=== PATIENT | male | born 1990 | race Two or more races ===

== ENCOUNTER 2025-07-21 00:22 | Emergency (ER) | payer OTHER ==
[~2025-07-21] VITALS: Ht 172.7 cm; Wt 110.2 kg
--- NOTE | 2025-07-21 00:52 | ED.PDOC ---
GI ASSESSMENT HPI Comments 35-year-old male who came to ER for abdominal pain/chest pain. Patient states it has been 5 days since his last bowel movement. He has been having left lower abdominal pain, but denies any nausea or vomiting. Denies any history of abdominal surgeries. Increase water intake, drinking prune juice as offered no relief for his constipation. Persistence of symptoms, now associated with chest pain, headaches, and tingling of upper extremities prompted patient to come to the ER Chief Complaint: Abdominal pain Time Seen by MD: 00:51 Reviewed Notes: Nurses Notes Allergies: Coded Allergies: NO KNOWN ALLERGIES (Unverified , 07/21/25) Home Meds Active Scripts Inulin (Fiber Choice Fruity Bites) 1.5 Gm Chw, 1.5 GM PO BID for 90 Days, #180 TAB.CHEW Prov:BENNY PERALTA MD 07/21/25 Bisacodyl (Dulcolax) 10 Mg Sup, 10 MG RE Q6HP PRN, #20 SUPP Prov:BENNY PERALTA MD 07/21/25 Information Source: Patient Mode of Arrival: Ambulatory Timing: Days Duration: Since onset Quality: Aching Vomitus: None Stool: Impaction Severity: Moderate Pain Location: LLQ Associated sign and symptoms: Constipation, Abdominal Pain Past Medical History PAST MEDICAL HISTORY: Denies Surgical History: Denies all surgeries Family History Family History: Reviewed,noncontributory to illness Social History Smoker: Non-Smoker Alcohol: Denies ETOH Use Drugs: Denies Drug Use Lives In: Home Constitutional: denies: chills, diaphoresis, fatigue, fever, malaise, sweats, weakness, others EENTM: denies: blurred vision, double vision, ear bleeding, ear discharge, ear drainage, ear pain, ear ringing, eye pain, eye redness, hearing loss, mouth pain, mouth swelling, nasal discharge, nose bleeding, nose congestion, nose pain, photophobia, tearing, throat pain, throat swelling, voice changes, others Respiratory: denies: cough, hemoptysis, orthopnea, SOB at rest, shortness of breath, SOB with excertion, stridor, wheezing, others Cardiovascular: denies: chest pain, dizzy spells, diaphoresis, Dyspnea on exertion, edema, irregular heart beat, left arm pain, lightheadedness, palpitations, PND, syncope, others Gastrointestinal: reports: abdominal pain, constipated; denies: abdomen distended, blood streaked bowels, diarrhea, dysphagia, difficulty swallowing, hematemesis, melena, nausea, poor appetite, poor fluid intake, rectal bleeding, rectal pain, vomiting, others Genitourinary: denies: burning, dysuria, flank pain, frequency, hematuria, incontinence, penile discharge, penile sore, pain, testicle pain, testicle swelling, urgency, others Neurological: denies: dizziness, fainting, headache, left sided numbness, left sided weakness, numbness, paresthesia, pre-existing deficit, right sided numbness, right sided weakness, seizure, speech problems, tingling, tremors, weakness, others Musculoskeletal: denies: back pain, gout, joint pain, joint swelling, muscle pain, muscle stiffness, neck pain, others Integumetry: denies: bruises, change in color, change in hair/nails, dryness, laceration, lesions, lumps, rash, wounds, others Allergic/Immunocompromised: denies: Difficulty Healing, Frequent Infections, Hives, Itching, others Hematologic/Lymphatic: denies: anemia, blood clots, easy bleeding, easy bruising, swollen glands, others Endocrine: denies: excessive hunger, excessive sweating, excessive thirst, excessive urination, flushing, intolerance to cold, intolerance to heat, unexplained weight gain, unexplained weight loss, others Psychiatric: denies: anxiety, bipolar disorder, depression, hopeless, panic disorder, schizophrenia, sleepless, suicidal, others Physical Exam General Appearance: No Apparent Distress, Normal HEENT: Normal ENT Inspection, Pharynx Normal, TMs Normal Neck: Full Range of Motion, Non-Tender, Normal, Normal Inspection Respiratory: Chest Non-Tender, Lungs Clear, No Accessory Muscle Use, No Respiratory Distress, Normal Breath Sounds Cardiovascular: No Edema, No JVD, No Murmur, No Gallop, Normal Peripheral Pulses, Regular Rate/Rhythm Breast Exam: Deferred Gastrointestinal: No Organomegaly, Non Tender, No Pulsatile Mass, Normal Bowel Sounds, Soft Genitalia: Deferred Pelvic: Deferred Rectal: Deferred Extremities: No calf tenderness, Normal capillary refill, Normal inspection, Normal range of motion, Non-tender, No pedal edema Musculoskeletal : Apperance: Normal Neurologic: Alert, laboratory geneticist II-XII nml as Tested, No Motor Deficits, Normal Affect, Normal Mood, No Sensory Deficits Cerebellar Function: Normal Reflexes: Normal Skin: Dry, Normal Color, Warm Lymphatic: No Adenopathy Was a procedure done? Was a procedure done?: No GI differential Dx Differential Diagnosis: Constipation, Diverticular disease, Gastritis/PUD, Gastroenteritis, Pancreatitis, UTI X-Ray, Labs, Meds, VS Vital Signs Date Time Temp Pulse Resp B/P (MAP) Pulse Ox O2 Delivery O2 Flow Rate FiO2 07/21/25 03:44 97.7 65 17 120/85 (97) 98 97.7 07/21/25 01:59 97.9 67 17 120/81 (94) 95 97.9 07/21/25 00:25 57 07/21/25 00:24 98.1 62 16 144/88 98 98.1 Lab Test 07/21/25 01:53 07/21/25 00:37 Range/Units Urine Color Light-yellow Yellow Urine Clarity Clear Clear Urine pH 6.0 5.0-9.0 Urine Specific Allen 1.026 1.001-1.035 Urine Protein Negative Negative Urine Ketones Negative Negative Urine Blood Negative Negative /uL Urine Nitrite Negative Negative Urine Bilirubin Negative Negative Urine Urobilinogen Normal Negative mg/dL Urine Leukocyte Esterase Negative Negative /uL Urine RBC <1 0 - 3 /hpf Urine Microscopic WBC < 1 0-3 /HPF Urine Squamous Epithelial Cells Few <5 /hpf Urine Bacteria None seen None Seen /hpf Urine Mucus Few None Seen Urine Glucose Normal Normal mg/dL White Blood Count 10.6 4.4-10.8 10^3/uL Red Blood Count 5.23 4.5-5.90 10^6/uL Hemoglobin 15.3 13.5-17.5 g/dL Hematocrit 44.1 41.0-53.0 % Mean Corpuscular Volume 84.4 80.0-100.0 fL Mean Corpuscular Hemoglobin 29.2 28.0-32.0 pg Mean Corpuscular Hemoglobin Concent 34.7 32.0-36.0 g/dL Red Cell Distribution Width 14.1 11.8-14.3 % Platelet Count 195 140-450 10^3/uL Mean Platelet Volume 7.5 6.9-10.8 fL Neutrophils (%) (Auto) 56.3 37.0-80.0 % Lymphocytes (%) (Auto) 34.0 10.0-50.0 % Monocytes (%) (Auto) 6.8 0.0-12.0 % Eosinophils (%) (Auto) 2.3 0.0-7.0 % Basophils (%) (Auto) 0.6 0.0-2.0 % Neutrophils # (Auto) 6.0 1.6-8.6 10 ^3/uL Lymphocytes # (Auto) 3.6 0.4-5.4 10 ^3/uL Monocytes # (Auto) 0.7 0-1.3 10 ^3/uL Eosinophils # (Auto) 0.2 0-0.8 10 ^3/uL Basophils # (Auto) 0.1 0-0.2 10 ^3/uL Nucleated Red Blood Cells 0.1 % Sodium Level 141 136-145 mmol/L Potassium Level 4.1 3.5-5.1 mmol/L Chloride Level 105 98-107 mmol/L Carbon Dioxide Level 28 20-31 mmol/L Anion Gap 8 5-15 Blood Urea Nitrogen 16 9-23 mg/dL Creatinine 0.99 0.700-1.30 mg/dL Glomerular Filtration Rate Calc 103 >90 mL/min BUN/Creatinine Ratio 16.2 10.0-20.0 Serum Glucose 90 74-106 mg/dL Calcium Level 9.4 8.7-10.4 mg/dL Total Bilirubin 0.3 0.2-1.0 mg/dL Aspartate Amino Transferase (AST) 23 13-40 U/L Alanine Aminotransferase (ALT) 40 7-40 U/L Alkaline Phosphatase 95 46-116 U/L Total Protein 7.9 5.7-8.2 g/dL Albumin 4.8 3.2-4.8 g/dL Lipase 52 12-53 U/L Current Medications Medications (Trade) Dose Ordered Sig/Alanna Route Start Time Stop Time Status Last Admin Sodium Chloride 1,000 ml @ 1,000 mls/hr Q1H ONCE IVB 07/21/25 00:45 07/21/25 01:44 DC 07/21/25 02:32 Polyethylene Glycol/ Electrolytes (Golytely) 1 kit ONCE ONCE PO 07/21/25 05:00 07/21/25 05:01 DC 07/21/25 05:30 Time of 1ST Reevaluation: 00:48 Reevaluation 1ST: Unchanged Patient Education/Counseling: Diagnosis, Treatment Family Education/Counseling: No Family Present SEPSIS Sepsis Screen Date sepsis recognized/suspect: Jul 21, 2025 Time Sepsis recognized/suspect: 0031 Recent Procedure: No On Antibiotic Therapy: No Respiratory Rate >20: No Heart Rate >90: No Temp<36 C (96.8 F) or >38.3 C: No SBP <90 or MAP <65 mmHG: No New Acute Mental Status Change: No Is the patient on CPAP, BIPAP,: No Physician Orders Ct Ab Pel With Iv Con Only (07/21/25 00:40) Electrocardigram (07/21/25 02:56) Vital Signs Date Time Temp Pulse Resp B/P (MAP) Pulse Ox O2 Delivery O2 Flow Rate FiO2 07/21/25 03:44 97.7 65 17 120/85 (97) 98 97.7 07/21/25 01:59 97.9 67 17 120/81 (94) 95 97.9 07/21/25 00:25 57 07/21/25 00:24 98.1 62 16 144/88 98 98.1 Laboratory Tests Test 07/21/25 00:37 White Blood Count 10.6 10^3/uL (4.4-10.8) Departure 1 Departure Time of Disposition: 05:00 Impression: Primary Impression: Pulmonary nodule Additional Impression: Constipation Disposition: 01 HOME / SELF CARE / HOMELESS Condition: Stable e-Prescriptions Inulin (Fiber Choice Fruity Bites) 1.5 Gm Chw 1.5 GM PO BID for 90 Days, #180 TAB.CHEW Prov: BENNY PERALTA MD 07/21/25 Bisacodyl (Dulcolax) 10 Mg Sup 10 MG RE Q6HP PRN, #20 SUPP Prov: BENNY PERALTA MD 07/21/25 Discharged With: Self Critical Care Note Critical Care Time?: No Stability Stability form required: No Heart Score Heart Score: Heart Score Response (Comments) Value History N/A 0 EKG N/A 0 Age N/A 0 Risk Factors N/A 0 Troponin N/A 0 Total 0 I personally scribed for BENNY PERALTA MD ([email or web address]) on 07/21/25 at 00:51. Electronically submitted by Ramon Carr ([email or web address]). BENNY PERALTA MD Jul 21, 2025 00:51
[2025-07-21 00:54] LABS: Hematocrit 44.1 % (41.0-53.0); Hemoglobin 15.3 g/dL (13.5-17.5); Mean Corpuscular Hemoglobin 29.2 pg (28.0-32.0); Mean Corpuscular Volume 84.4 fL (80.0-100.0); Nucleated Red Blood Cells % 0.1 %
[2025-07-21 01:13] LABS: Alanine Aminotransferase 40 U/L (7-40); Albumin 4.8 g/dL (3.2-4.8); Alkaline Phosphatase 95 U/L (46-116); Anion Gap 8 (5-15); BUN/Creatinine Ratio 16.2 (10.0-20.0); Blood Urea Nitrogen 16 mg/dL (9-23); Calcium 9.4 mg/dL (8.7-10.4); Carbon Dioxide 28 mmol/L (20-31); Chloride 105 mmol/L (98-107); Glucose 90 mg/dL (74-106); Lipase 52 U/L (12-53); Potassium 4.1 mmol/L (3.5-5.1); Sodium 141 mmol/L (136-145); Total Protein 7.9 g/dL (5.7-8.2)
[2025-07-21 01:15] LABS: Bilirubin, Total 0.3 mg/dL (0.2-1.0)
[2025-07-21 02:00] LABS: Urine Protein, UAD Negative (Negative)
[2025-07-21] MEDS: MORPHINE SULFATE 4 MG/ML SYR/VIAL IV ONE (02:15)
[2025-07-21] MEDS: ONDANSETRON HCL 4 MG/2 ML VIAL IV ONE (02:15)
[2025-07-21] MEDS: SODIUM CHLORIDE 0.9% 1,000 ML IVB ONE (02:32)
[2025-07-21 03:44] VITALS: BP 120/85; PULSE 65; RESP 17; TEMP 97.7; O2SAT 98
[2025-07-21] MEDS: IOHEXOL 300 MG/ML 100ML BOTTLE IJ ONE (04:31)
[2025-07-21] MEDS: GOLYTELY 4L KIT PO ONE (05:30)
--- NOTE | 2025-07-21 05:31 | DVH ---
EXAM: CT CT AB PEL WITH IV CON ONLY HISTORY: LLQ pain COMPARISON: None TECHNIQUE: Helical CT images of the abdomen and pelvis were performed with 100 mL Omnipaque 300 IV co ntrast. Sagittal and coronal reformatted images were obtained. This CT exam was performed using 1 or more of the following dose reduction techniques: Automated exposure control, adjustment of the mA and /or kv according to patient size, or the use of iterative reconstruction techniques. Radiation Dose Information: CT Dose: CTDI volume is 23.83 mGy. Dose-length product is 1494.08 mGy*cm FINDINGS: CT abdomen: There is a left lower lobe pleural-based 9 mm noncalcified pulmonary nodule (image 15, se ivan 3). There is mild peribronchial thickening in the lung bases. The heart is not enlarged. The sp onesimo measures 12.8 cm longitudinal. The liver, gallbladder, pancreas, kidneys, and adrenal glands are unremarkable. No abdominal aortic aneurysm or dissection. CT pelvis: No abnormal bowel dilatation, free air, or free fluid. There is fecal retention in the col on. The appendix and urinary bladder are unremarkable. IMPRESSION: 1. Left lower lobe pleural-based 9 mm noncalcified pulmonary nodule. Recommend outpatient CT follow- up according to Fleischner society guidelines. 2. Mild Reactive airways disease. 3. Mild splenomegaly. 4. Fecal retention in the colon suggestive of constipation. 5. No evidence of bowel obstruction, acute appendicitis, or other acute process in the abdomen or pel vis.
[2025-07-21] MEDS ORDERED: INUL6.5C PO (05:40)
[2025-07-21] MEDS ORDERED: BISA10SU45 RE (05:40)
--- NOTE | 2025-07-23 13:26 | ECG ---
[facility], [place] Test Date: 2025-07-21 Test Time: 00:31:31 Pat Name: ANGIE BALTAZAR Department: ED Room: Gender: M Supervisor Maintenance: HAILY : 1990 Requested By: BENNY PERALTA Order Number: [id number] Reading MD: Measurements Intervals [place] Rate: 57 P: 53 AK: 203 QRS: 66 QRSD: 93 T: 26 QT: 455 QTc: 443 Interpretive Statements Sinus rhythm Borderline prolonged AK interval Please click the below link to view image of tracing.
== END 2025-07-21 05:55 | disposition home or self-care (01) ==
LOC: ER 00:22
DX: R91.1 Solitary pulmonary nodule (principal); K59.00 Constipation, unspecified
CPT/HCPCS: 36415; 74177; 80053; 81001; 83690; 85025; 93005; 96360; 99285; J7030; Q9967